=== PATIENT | female | born 1975 | race Caucasian/White ===

== ENCOUNTER 2021-03-04 15:29 | Emergency (ER) | payer BC, OTHER ==
[~2021-03-04] VITALS: Ht 165.1 cm; Wt 81.7 kg
--- NOTE | ~2021-03-04 | EMS ---
[address] [address] EMS Patient Care Report Name: JENN PETER Room #: DEP MIGUEL ANGEL Horne#: [id number] Admission: 03/04/21 Attend Phys: Discharge: 03/04/21 Date of : 71 Report #: [id number] THIS REPORT FOR: //name// Report Transmitted: 03/05/2021 09:19 EMS Care Summary [place], [place]/[facility] Incident [id number] @ 03/04/2021 14:53 Incident Location [address] [place] [address] Patient JENN PETER Female, 45 Years 1975 Patient Address Patient History Other,Cardiac Arrythmia,Attention Deficit Hyperactivity Disorder (ADHD), Patient Allergies Amoxicillin, Patient Medications Vyvanse, Chief Complaint EPIGASTRIC DISCOMFORT WITH NAUSEA Disposition Transported No Lights/[place] Dispatch Reason Sick Person Transported To [facility] Narrative UPON ARRIVAL WE FOUND OUR ANXIOUS 45 YEAR OLD FEMALE PATIENT, WITH A HX OF GASTRIC BYPASS SURGERY, AMBULATING IN THE PARKING LOT COMPLAINING OF AN ACUTE ONSET OF CONSTANT EPIGASTRIC PRESSURE THAT RADIATES TO HER BACK WITH NAUSEA X 30 MINS. THE PATIENT DENIES ANY CP, SYNCOPE, SOA, VOMITING, DIARRHEA, COUGH, FEVER, CHILLS, OR ANOSMIA. THE PATIENT REQUESTS TRANSPORT TO [facility] [place] [address] EMS Patient Care Report Name: JENN PETER Room #: DEP [facility]#: [id number] Admission: 03/04/21 Attend Phys: Discharge: 03/04/21 Date of : 71 Report #: [id number] Initial Vitals @15:10P: 87, @15:02P: 91,R: 18,BP: 154/92,Pain: 4/10,GCS: 15,CO: 2,SpO2: 97,Revised Trauma: 12,OK Suspected: false @15:08P: 85,R: 18,BP: 146/84,Pain: 4/10,GCS: 15,CO: 1,SpO2: 98,Revised Trauma: 12,OK Suspected: false @15:23P: 92,R: 16,BP: 144/80,Pain: 4/10,GCS: 15,SpO2: 98,Revised Trauma: 12,OK Suspected: false Assessments @15:01MENTAL:Other,SKIN:Diaphoresis,HEENT:Eyes: Left Pupil: 4-mm,Eyes: Right Pupil: 4-mm,Head/Face: No Abnormalities,Neck/Airway: No Abnormalities,LUNG SOUNDS:Left Upper: Tenderness,General: Nausea,Right Upper: Tenderness,ABDOMEN:Left Upper: Tenderness,General: Nausea,Right Upper: Tenderness,PELVIS//GI:No Abnormalities,EXTREMITIES:Left Arm: No Abnormalities,Right Arm: No Abnormalities,Left Leg: No Abnormalities,Right Leg: No Abnormalities,PULSE:Radial: 2+ Normal,NEURO:No Abnormalities, Impression Abdominal Pain Procedures @15:1012-Lead ECGResponse: UnchangedSucceeded@15:01ALS AssessmentResponse: UnchangedSucceeded@15:093-Lead ECGResponse: UnchangedSucceeded@15:13Saline Lock 0cc (20 ga) Site: Antecubital-LeftResponse: UnchangedSucceeded Timeline 14:51,Call Received 14:51,Dispatch Notified 14:53,Dispatched 14:53,En Route 15:00,On Scene 15:01,At Patient 15:01,ALS Assessment,Response: UnchangedSucceeded, 15:02,BP: 154/92 M,PULSE: 91,RR: 18 R,SPO2: 97 Ox,ETCO2: ,BG: ,PAIN: 4,GCS: 15, 15:08,BP: 146/84 M,PULSE: 85,RR: 18 R,SPO2: 98 Ox,ETCO2: ,BG: ,PAIN: 4,GCS: 15, 15:09,3-Lead ECG,Response: UnchangedSucceeded, 15:10,12-Lead ECG,Response: UnchangedSucceeded, 15:10,BP: / M,PULSE: 87,RR: R,SPO2: Ox,ETCO2: ,BG: ,PAIN: ,GCS: , 15:13,Saline Lock 0cc 20 ga Site: Antecubital-Left,Response: UnchangedSucceeded, 15:13,Depart Scene 15:22,At Destination 15:23,BP: 144/80 M,PULSE: 92,RR: 16 R,SPO2: 98 Ox,ETCO2: ,BG: ,PAIN: 4,GCS: 15, 15:37,Call Closed [facility] [address] [place] [address] EMS Patient Care Report Name: JENN PETER MANDY Room #: DEP M.R.#: [id number] Admission: 03/04/21 Attend Phys: Discharge: 03/04/21 Date of : 71 Report #: [id number] Disclaimer v1.1 Copyright [employer] This EMS Care Summary contains data elements from the applicable legal record (which may be displayed differently). It is designed to provide pertinent information for the following purposes: continuity of care, clinical quality, and state data reporting. The complete legal record is available to ED staff and administrators of the receiving hospital in [employer]'s Patient Tracker. All data is provided "as is."
[~2021-03-04 15:29] MED LIST: ALLEGRA60 MG PO; CLARITIN10 MG PO; COZAAR 25 MG TA25 M1 PO; LEXAPRO20 MG PO; OXYCODONE-APAP1 EAC4 PO; PEPCID AC20 M1 PO; PREDNISONE 20 M20 M1 PO; PROAIR HFA8.5 GM IH; ULTRAM 50MG TAB50 MG PO; WELLBUTRIN SR150 MG PO; ZOFRAN4 MG PO; ZPAK PO
[2021-03-04 16:31] LABS: URINE BILIRUBIN NEGATIVE (Negative); URINE BLOOD NEGATIVE (Negative); URINE CLARITY CLEAR; URINE COLOR YELLOW; URINE GLUCOSE-RANDOM* NEGATIVE (Negative); URINE KETONES NEGATIVE (Negative); URINE LEUKOCYTES-REFLEX NEGATIVE (Negative); URINE NITRITE-REFLEX NEGATIVE (Negative); URINE PROTEIN (DIPSTICK) NEGATIVE (Negative); URINE SPECIFIC GRAVITY <= 1.005 (1.005-1.035); URINE UROBILINOGEN 0.2 E.U./dl (0.2-1.0)
[2021-03-04 16:32] LABS: ABSOLUTE NEUTROPHILS 4.3 thou/uL (1.4-8.2); BASOPHILS 0.7 % (0.0-2.0); EOSINOPHILS 0.7 % (0.0-3.0); HEMATOCRIT 40.4 % (37.0-47.0); HEMOGLOBIN 13.6 gm/dL (12.0-15.0); LYMPHOCYTES 20.3 % (24.0-44.0); MCH 32.1 pg (26.0-34.0); MCHC 33.7 g/dL (28.0-37.0); MCV 95.4 fL (80.0-100.0); MONOCYTES 7.1 % (1.0-8.0); PLATELET COUNT 246 thou/uL (150-400); POLYS 71.2 % (36.0-66.0); RBC 4.23 mil/uL (4.20-5.00); RDW 12.9 % (10.5-14.5)
[2021-03-04 16:54] LABS: ANION GAP 5 mmol/L (7-16); BUN 14 mg/dL (7-18); CALCIUM 8.7 mg/dL (8.5-10.1); CHLORIDE 105 mmol/L (98-107); CO2 32 mmol/L (21-32); CREATININE 0.8 mg/dL (0.6-1.0); GLUCOSE 83 mg/dL (74-106); POTASSIUM 3.5 mmol/L (3.5-5.1); SODIUM 142 mmol/L (136-145)
[2021-03-04 17:04] LABS: ALBUMIN 3.8 g/dL (3.4-5.0); LIPASE 129 U/L (73-393); SGOT 48 U/L (15-37); SGPT 40 U/L (14-59); TOTAL BILIRUBIN 0.7 mg/dL (0.2-1.0); TOTAL PROTEIN 6.5 g/dL (6.4-8.2); TROPONIN-I <0.06 ng/mL (<0.06)
[2021-03-04] MEDS ORDERED: PEPCID20 MG PO (19:43)
[2021-03-04] MEDS ORDERED: ZOFRAN ODT4 MG PO (19:43)
[2021-03-04 20:09] VITALS: BP 129/78
--- NOTE | 2021-03-05 07:15 | EKG ---
[address] [place] [address] ELECTROCARDIOGRAM REPORT Name: JENN PETER [id number] Admission: 03/04/21 Attend Phys: Discharge: 03/04/21 Date of : 71 Report #: [id number] [facility] ED Test Date: 2021-03-04 Test Time: 15:30:38 Pat Name: JENN PETER Department: Room: Gender: F Java Designer: JCHAINADIRA : 1975 Requested By: John Grissom Order Number: [id number] MD: Efe Cuevas Measurements Intervals [place] Rate: 89 P: 63 IA: 145 QRS: 41 QRSD: 104 T: 49 QT: 374 QTc: 456 Interpretive Statements Sinus rhythm Compared to ECG 12/03/2013 19:52:43 Ventricular premature complex(es) no longer present Electronically Signed On 03-05-2021 7:15:20 CDT by Efe Cuevas [email or web address] <ELECTRONICALLY SIGNED> By: Efe Cuevas MD, [facility] 03/05/21 0715 1530 1530 Efe Cuevas MD, FACC /EPI
== END 2021-03-04 20:15 | disposition home or self-care (01) ==
LOC: ER 15:29
PROVIDERS: Emergency Medicine
DX: K29.70 Gastritis, unspecified, without bleeding (principal); R10.816 Epigastric abdominal tenderness; Z90.49 Acquired absence of other specified parts of digestive tract; Z79.899 Other long term (current) drug therapy; Z88.1 Allergy status to other antibiotic agents; Z88.0 Allergy status to penicillin